=== PATIENT | female | born 1985 | race Caucasian/White ===

== ENCOUNTER → 2020-12-13 | Emergency (ER) | payer OTHER ==
[~2020-12-13] VITALS: Ht 160 cm; Wt 63.6 kg
[~2020-12-13] MED LIST: CIPR10DR AD
[2020-12-13 01:35] VITALS: BP 145/87
--- NOTE | 2020-12-13 02:16 | ED.ADGEN ---
Past Medical History Past Surgical History: No Surgical History Smoking Status: Current Every Day Smoker Alcohol Use: Occasionally General Adult EDM: Chief Complaint: EARACHE/EAR PAIN HPI: HPI: Patient is a 35-year-old female who presents to the emergency room complaining of right ear pain. Patient has been seen at [facility] twice for the same symptoms. She was referred to an ENT but has not called them. She states that she is on an eardrop and oral antibiotics but the eardrops makes her ear burn and it does not seem like her symptoms are getting any better. She states that the pain radiates into her face. She has never had anything like this before. She has had drainage from the ear since onset. She denies any, headaches. She has not been having fever. Review of Systems: Review of Systems: Complete ROS is negative unless otherwise documented in HPI Allergies: Allergies: Allergies Coded Allergies Type Severity Reaction Last Updated Verified No Known Drug Allergies 12/13/20 No Physical Exam: PE: General: Awake, alert, NAD. Well Nourished, well hydrated. Cooperative HEENT: Atraumatic, EOMI, PERRL, airway patent, moist oral mucosa, right external canal erythematous, swollen, white drainage. No surrounding erythema of the ear or tenderness around the ear Neck: Supple, trachea midline Respiratory: CTA bilaterally, normal effort, no wheezing/crackles CV: RRR, no murmur, cap refill <2 GI: Soft, nondistended, nontender, no masses MSK: No obvious deformities Skin: Warm, dry, intact Neuro: A&O x3, speech NL, sensory and motor grossly intact, no focal deficits, normal gait Psych: Normal affect, normal mood, not suicidal or homicidal Current Patient Data: Vital Signs: Vital Signs Date Time Temp Pulse Resp B/P (MAP) Pulse Ox O2 Delivery O2 Flow Rate FiO2 12/13/20 01:35 98.9 87 20 145/87 98 Room Air 98.9 EKG: EKG: [] Heart Score: C/O Chest Pain: N/A Risk Factors: Risk Factors: DM, Current or recent (<one month) smoker, HTN, HLP, family history of CAD, obesity. Risk Scores: Score 0 - 3: 2.5% MACE over next 6 weeks - Discharge Home Score 4 - 6: 20.3% MACE over next 6 weeks - Admit for Clinical Observation Score 7 - 10: 72.7% MACE over next 6 weeks - Early Invasive Strategies Radiology/Procedures: Radiology/Procedures: [] Course & Med Decision Making: Course & Med Decision Making Pertinent Labs and Imaging studies reviewed. (See chart for details) Patient is a 35-year-old female who presents to the emergency room with swimmer's ear. Patient is on an eardrop as well as oral antibiotics. Symptoms have not improved according to the patient. Patient has not tried to follow-up with the ENT that she was referred to. Patient has normal vitals at this time and does not have any surrounding erythema that would suggest extension of infection. We will switch her antibiotics. I have encouraged her to call the ENT this morning to get evaluated. Ear canal does not appear to be occluded at this time. Patient's test results and vitals while in the ED were fully reviewed and discussed with the patient. Patient is stable and at this time does not need admission to the hospital. We have discussed strict return precautions and the importance of following up with their Primary Care Physician. Patient stated understanding and was given an opportunity to ask any questions. Patient is in agreement with plan. Sylvie Disclaimer: Dragjohn Disclaimer: This electronic medical record was generated, in whole or in part, using a voice recognition dictation system. Departure Departure Impression: Primary Impression: Otitis externa Disposition: HOME / SELF CARE / HOMELESS Condition: STABLE Patient Instructions: Otitis Externa Scripts Ciprofloxacin/Hydrocortisone (CIPRO HC OTIC SUSPENSION) 10 Ml Drops.susp 3 DROP AD BID, #10 ML Prov: PRATIK CORBIN MD 12/13/20 PRATIK CORBIN MD Dec 13, 2020 02:16
== END | disposition home or self-care (01) ==
LOC: ER 01:12
DX: H60.91 Unspecified otitis externa, right ear (principal); F17.200 Nicotine dependence, unspecified, uncomplicated
CPT/HCPCS: 99283